=== PATIENT | male | born 1965 | race African-American/Black ===

== ENCOUNTER 2016-07-01 02:32 | Emergency (ER) | payer MEDICAID ==
[~2016-07-01] VITALS: Ht 182.9 cm; Wt 124.7 kg
[2016-07-01] MEDS ORDERED: Morphine Sulfate 4mg/ml Inj IVP ONE (02:45)
[2016-07-01 03:05] LABS: BASOPHILS % (AUTO) 0.6 % (0.0-2.0); EOSINOPHILS % (AUTO) 1.6 % (0.0-3.0); MEAN CORPUSCULAR HEMOGLOBIN 29.1 PG (27.0-31.0); MEAN CORPUSCULAR HGB CONC 34.4 G/DL (32.0-36.0); MEAN CORPUSCULAR VOLUME 85 FL (80-99); MEAN PLATELET VOLUME 8.5 FL (6.5-10.1); MONOCYTES % (AUTO) 7.1 % (1.0-10.0); NEUTROPHILS % (AUTO) 67.6 % (45.0-75.0); PLATELET COUNT 255 K/UL (150-450); RED BLOOD COUNT 4.39 M/UL (4.70-6.10); RED CELL DISTRIBUTION WIDTH 12.2 % (11.6-14.8); WHITE BLOOD COUNT 14.5 K/UL (4.8-10.8)
[2016-07-01 03:15] LABS: INR 0.9 (0.9-1.1); PROTHROMBIN TIME 9.6 SEC (9.30-11.50)
[2016-07-01 03:24] LABS: ALBUMIN/GLOBULIN RATIO 1.3 (1.0-2.7); CREATININE 1.3 mg/dL (0.7-1.2); GLOMERULAR FILTRATION RATE 58.7 mL/min (>60); POTASSIUM 3.1 mEQ/L (3.4-4.9); TOTAL PROTEIN 7.4 g/dL (6.6-8.7)
[2016-07-01] MEDS ORDERED: Ketorolac 30mg Inj IV ONE (04:00)
[2016-07-01 04:18] LABS: APPEARANCE,URINE CLEAR; KETONES,URINE NEGATIVE (NEGATIVE); LEUKOCYTE ESTERASE ,URINE NEGATIVE (NEGATIVE); NITRITE,URINE NEGATIVE (NEGATIVE); PH,URINE 8 (4.5-8.0); PROTEIN,URINE NEGATIVE (NEGATIVE); UROBILINOGEN,URINE NORMAL MG/DL (0.0-1.0)
[2016-07-01 04:21] VITALS: BP 158/77
[2016-07-01] MEDS ORDERED: cefTRIAXone 1 GM in NS 55 ML IVPB ONE (05:00)
[2016-07-01] MEDS ORDERED: NORCO 5-325 TA1 EAC1 ORAL (05:54)
[2016-07-01] MEDS ORDERED: KEFLEX500 MG ORAL (05:54)
[2016-07-01 06:23] VITALS: BP 158/77
--- NOTE | 2016-07-01 07:11 | Emergency Room Report ---
History of Present Illness General Chief Complaint: Abdominal Pain Source: Patient Present Illness HPI Patient is a 50-year-old male presented after increased right-sided flank pain. Patient had gradual onset of symptoms of the past few hours. Pain is waxing and waning in nature. Pain was sharp and radiated to his groin. Patient denied any fever. He had vomiting X one. Patient denies prior surgery. He had prior history of hypertension. He denies any increased pain with ambulation. Allergies: Coded Allergies: No Known Allergies (Unverified , 07/01/16) Patient History Past Medical History: see triage record Reviewed Nursing Documentation: PMH: Agreed, PSxH: Agreed Nursing Documentation-PMH Past Medical History: No Stated History Review of Systems All Other Systems: negative except mentioned in HPI Physical Exam Vital Signs Date Time Temp Pulse Resp B/P Pulse Ox O2 Delivery O2 Flow Rate FiO2 07/01/16 02:38 97.5 85 14 191/97 98 Room Air Sp02 EP Interpretation: reviewed, normal General Appearance: normal inspection, alert, GCS 15, mild distress Head: atraumatic ENT: normal ENT inspection, hearing grossly normal, normal voice Neck: normal inspection, full range of motion, supple, no bony tend Respiratory: normal inspection, lungs clear, normal breath sounds, no respiratory distress, no retraction, no wheezing Cardiovascular #1: regular rate, rhythm, no edema Gastrointestinal: normal inspection, normal bowel sounds, non tender, soft, no guarding, no hernia Genitourinary: no CVA tenderness Musculoskeletal: normal inspection, back normal, normal range of motion Neurologic: normal inspection, alert, oriented x3, responsive, 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 Differential diagnoses included ischemic bowel, appendicitis, perforated viscus, abdominal aortic aneurysm, inferior myocardial infarction, viral gastroenteritis Because of complexity of patient's case laboratory testing and imaging studies were ordered. laboratory testing showed elevated white blood count. The patient given IV antibiotics. CT abdomen pelvis read by radiology showed a 2 mm ureteral calculus near the UVJ. The patient was started on IV fluids as well as IV antibiotics. He was given IV pain medications as well as IV Toradol. The patient subsequently said he felt better and wanted to go home. Patient given prescriptions for antibiotics as well as pain medications. Patient is advised to return if he began having a fever persistent vomiting or increased pain. Labs Test 07/01/16 02:48 07/01/16 03:51 White Blood Count 14.5 K/UL (4.8-10.8) Red Blood Count 4.39 M/UL (4.70-6.10) Hemoglobin 12.8 G/DL (14.2-18.0) Hematocrit 37.2 % (42.0-52.0) Mean Corpuscular Volume 85 FL (80-99) Mean Corpuscular Hemoglobin 29.1 PG (27.0-31.0) Mean Corpuscular Hemoglobin Concent 34.4 G/DL (32.0-36.0) Red Cell Distribution Width 12.2 % (11.6-14.8) Platelet Count 255 K/UL (150-450) Mean Platelet Volume 8.5 FL (6.5-10.1) Neutrophils (%) (Auto) 67.6 % (45.0-75.0) Lymphocytes (%) (Auto) 23.0 % (20.0-45.0) Monocytes (%) (Auto) 7.1 % (1.0-10.0) Eosinophils (%) (Auto) 1.6 % (0.0-3.0) Basophils (%) (Auto) 0.6 % (0.0-2.0) Prothrombin Time 9.6 SEC (9.30-11.50) Prothromb Time International Ratio 0.9 (0.9-1.1) Activated Partial Thromboplast Time 25 SEC (23-33) Sodium Level 144 mEQ/L (135-145) Potassium Level 3.1 mEQ/L (3.4-4.9) Chloride Level 100 mEQ/L (98-107) Carbon Dioxide Level 28 mEQ/L (20-30) Anion Gap 16 (5-15) Blood Urea Nitrogen 18 mg/dL (7-23) Creatinine 1.3 mg/dL (0.7-1.2) Estimat Glomerular Filtration Rate 58.7 mL/min (>60) Glucose Level 196 mg/dL (74-106) Calcium Level 9.0 mg/dL (8.6-10.2) Total Bilirubin 0.5 mg/dL (0.0-1.2) Aspartate Amino Transf (AST/SGOT) 15 U/L (5-40) Alanine Aminotransferase (ALT/SGPT) 17 U/L (3-41) Alkaline Phosphatase 79 U/L (40-129) Total Protein 7.4 g/dL (6.6-8.7) Albumin 4.3 g/dL (3.5-5.2) Globulin 3.1 g/dL Albumin/Globulin Ratio 1.3 (1.0-2.7) Lipase 24 U/L (< 60) Urine Color Yellow Urine Appearance Clear Urine pH 8 (4.5-8.0) Urine Specific Tracy 1.010 (1.005-1.035) Urine Protein Negative (NEGATIVE) Urine Glucose (UA) 2+ (NEGATIVE) Urine Ketones Negative (NEGATIVE) Urine Occult Blood Negative (NEGATIVE) Urine Nitrite Negative (NEGATIVE) Urine Bilirubin Negative (NEGATIVE) Urine Urobilinogen Normal MG/DL (0.0-1.0) Urine Leukocyte Esterase Negative (NEGATIVE) Last Vital Signs Date Time Temp Pulse Resp B/P Pulse Ox O2 Delivery O2 Flow Rate FiO2 07/01/16 06:23 97.5 21 158/77 98 Room Air 07/01/16 02:38 85 Status: improved Disposition: HOME, SELF-CARE Condition: Stable Scripts Hydrocodone Bit/Acetaminophen 5-325* (NORCO 5-325 TABLET*) 1 Each Tablet 1 TAB ORAL Q4H Y for For Pain, #14 TAB Prov: Jordy Mancini 07/01/16 Cephalexin* (KEFLEX*) 500 Mg Capsule 500 MG ORAL Q6H, #28 CAP 0 Refills Prov: Jordy Mancini 07/01/16 Patient Instructions: Renal Colic Jordy Mancini July 01, 2016 07:11
--- NOTE | 2016-07-02 12:38 | Diagnostic Imaging Report ---
Indications: Abdominal pain Technique: Continuous helical CT imaging of the abdomen and pelvis was performed with automatic exposure control following administration of nonionic IV contrast only, on a Siemens sensation [address] scanner. Axial, coronal, sagittal images were reconstructed at 5 mm slice thickness. No oral contrast was administered per requesting physician's order, despite no contraindications listed. CTDI volume(s): 20 mGy Total DLP: 1072 mGy-cm Findings: Comparison: None Lack of oral contrast limits evaluation of gastrointestinal tract, nondilated throughout. Appendix unremarkable. Left-sided colon poorly distended, limiting evaluation. Single diverticulum descending colon. No obvious mural thickening, adjacent stranding, extraluminal gas or fluid collections identified. 2 mm stone within distal aspect of right ureter immediately proximal to the ureterovesical junction. Right ureter and renal collecting system above is mildly dilated. Mild stranding surrounds the right kidney. Liver parenchyma mildly, diffusely decreased attenuation. No focal abnormality. Gallbladder, pancreas, spleen, adrenal glands, left kidney, unopacified left ureter and urinary bladder, prostate, seminal vesicles, vascular structures, retroperitoneum, mesentery, remainder visualized abdominopelvic anatomy unremarkable. Lung bases and adjacent pleural surfaces clear. Disc marginal osteophytes lower thoracic spine.. IMPRESSION: 2 mm stone distal right ureter with mild hydronephrosis, perinephric stranding. Superimposed infection not excludable. No other evidence of acute abdominopelvic disease, with limitation as described. Subtle but potentially significant abnormalities the gastrointestinal tract may be missed. Repeat CT scan with full oral and IV contrast preparation recommended for more complete evaluation, as clinically indicated Colonic diverticulosis Hepatic steatosis Degenerative spondylosis This correlates with [facility] preliminary report.
== END 2016-07-01 06:27 | disposition home or self-care (01) ==
LOC: EMR 02:45 → EDBEDREQ 05:09 → CANBEDREQ 05:53 → EMR 06:27
DX: N20.9 Urinary calculus, unspecified (principal); N13.2 Hydronephrosis with renal and ureteral calculous obstruction; K57.30 Diverticulosis of large intestine without perforation or abscess without bleeding; K76.0 Fatty (change of) liver, not elsewhere classified
CPT/HCPCS: 36415; 74177; 80053; 81003; 83690; 85025; 85610; 85730; 86850; 86900; 86901; 96374; 96375; 99284; J0696; J1885; J2270; J7040; Q9967

== ENCOUNTER 2020-03-30 13:41 | Emergency (ER) | payer BC, MEDICAID ==
[~2020-03-30] VITALS: Ht 185.4 cm; Wt 127.5 kg
[~2020-03-30 13:41] MED LIST: KEFLEX500 MG ORAL; NORCO 5-325 TA1 EAC1 ORAL
--- NOTE | 2020-03-30 14:15 | NUR ---
pt report that his told him that he have a red yaa in his lower back, denies any pain at this time, no pain at this touch, no redness, no edema or bruces noted at this time.
[2020-03-30] MEDS ORDERED: Omnipaque-300 100ml vial INJ PRN (14:30)
--- NOTE | 2020-03-30 14:34 | Emergency Room Report ---
History of Present Illness General Chief Complaint: General Complaint Source: Patient Present Illness HPI Disclaimer: Please note that this report is being documented using [employer] technology. This can lead to erroneous entry secondary to incorrect interpretation by the dictating instrument. HPI: 54-year-old male presents for evaluation of bruising over the left flank. Patient noticed a dark discoloration over the left flank 3 days ago. No trauma noted. He notes some tightness in the back bilaterally and sometimes intermittent tingling in the left leg. 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 States he has problems with tight back muscles in the past. Denies saddle anesthesia, urinary tension, fecal incontinence, lower extremity weakness, changes in ambulation, fever, chills. Does not inject any medications. He currently denies any abdominal pain, nausea or vomiting. Eating at baseline. No recent illness. No prior history of coagulopathy according to patient or family history noted. He takes a baby aspirin daily PMH: Hypertension PSH: Denied Allergies: Penicillin (unknown reaction, told he was allergic as child) Social Hx: Occasional alcohol. Denies tobacco or drug use Allergies: Coded Allergies: PENICILLINS (Verified Allergy, Intermediate, 03/30/20) COVID-19 Screening Contact w/high risk pt: No Experienced COVID-19 symptoms?: No COVID-19 Testing performed [employer]: No Nursing Documentation-PMH Hx Hypertension: Yes Review of Systems All Other Systems: negative except mentioned in HPI Physical Exam Vital Signs Date Time Temp Pulse Resp B/P (MAP) Pulse Ox O2 Delivery O2 Flow Rate FiO2 03/30/20 14:09 98.4 82 18 153/91 (111) 98 Room Air General: Awake and alert, no acute distress HEENT: NC/AT. EOMI. Cardiovascular: RRR. S1 and S2 normal. No murmur appreciated Resp: Normal work of breathing. No cough, wheezing or crackles appreciated Abdomen: Abdomen is soft, nondistended. Obese abdomen. Nontender Skin: Intact. No abrasions, laceration or rash over the exposed skin MSK: Normal tone and bulk. Moving all extremities. No obvious deformity. Neuro: Awake and alert. Mentating appropriately. Back: No tenderness in the midline in the cervical, thoracic or lumbosacral spine. Moderate bilateral paraspinal tenderness. There is bruising approximately 3 x 4 cm over the left flank above the pelvis and below the last rib. No significant tenderness. No skin breakdown. No bruising on the right. Medical Decision Making Diagnostic Impression: Primary Impression: Fatty liver Additional Impressions: Hiatal hernia Sciatica Urinary tract calculus ER Course Is a 54-year-old male presenting for evaluation of unexplained bruising over the left flank and some tightness in the lower back. Concerned this may be a Parr Rausch sign patient had retroperitoneal bleed labs and CT were ordered. CT identifies fatty liver small hiatal hernia and nonspecific perinephric stranding but otherwise no signs of bleeding, major trauma or other major abnormalities. Labs are within normal limits. 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 Recommended physical therapy stretching exercise and will do a short course of Robaxin, Motrin and lidocaine patches. Patient requesting for refill of his amlodipine as not been able to see his PMD in some time. Recommended he follow-up quickly with his PMD but will refill his amlodipine today. Stable for outpatient follow-up. Return precautions discussed. He understands and agrees with this treatment plan. Laboratory Tests Test 03/30/20 15:00 White Blood Count 6.7 K/UL (4.8-10.8) Red Blood Count 4.85 M/UL (4.70-6.10) Hemoglobin 14.3 G/DL (14.2-18.0) Hematocrit 40.9 % (42.0-52.0) L Mean Corpuscular Volume 84 FL (80-99) Mean Corpuscular Hemoglobin 29.4 PG (27.0-31.0) Mean Corpuscular Hemoglobin Concent 35.0 G/DL (32.0-36.0) Red Cell Distribution Width 14.1 % (11.6-14.8) Platelet Count 222 K/UL (150-450) Mean Platelet Volume 7.8 FL (6.5-10.1) Neutrophils (%) (Auto) 51.5 % (45.0-75.0) Lymphocytes (%) (Auto) 35.5 % (20.0-45.0) Monocytes (%) (Auto) 8.4 % (1.0-10.0) Eosinophils (%) (Auto) 3.6 % (0.0-3.0) H Basophils (%) (Auto) 1.0 % (0.0-2.0) Prothrombin Time 10.3 SEC (9.30-11.50) Prothrombin Time INR 0.9 (0.9-1.1) Activated Partial Thromboplast Time 28 SEC (23-33) Sodium Level 142 MMOL/L (136-145) Potassium Level 3.5 MMOL/L (3.5-5.1) Chloride Level 104 MMOL/L (98-107) Carbon Dioxide Level 30 MMOL/L (21-32) Anion Gap 8 mmol/L (5-15) Blood Urea Nitrogen 15 mg/dL (7-18) Creatinine 1.0 MG/DL (0.55-1.30) Estimated Glomerular Filtration Rate > 60 mL/min (>60) Glucose Level 95 MG/DL (74-106) Calcium Level 9.1 MG/DL (8.5-10.1) Total Bilirubin 1.0 MG/DL (0.2-1.0) Aspartate Amino Transferase (AST) 21 U/L (15-37) Alanine Aminotransferase (ALT) 35 U/L (12-78) Alkaline Phosphatase 88 U/L (46-116) Total Protein 8.0 G/DL (6.4-8.2) Albumin 4.0 G/DL (3.4-5.0) Globulin 4.0 g/dL Albumin/Globulin Ratio 1.0 (1.0-2.7) Lipase 128 U/L (73-393) Last Vital Signs Date Time Temp Pulse Resp B/P (MAP) Pulse Ox O2 Delivery O2 Flow Rate FiO2 03/30/20 14:19 89 19 Room Air 03/30/20 14:09 98.4 153/91 (111) 98 Disposition: HOME, SELF-CARE Condition: Stable Scripts Amlodipine Besylate* (AMLODIPINE BESYLATE*) 10 Mg Tablet 10 MG ORAL DAILY for Hypertension for 30 Days, #30 TAB Prov: Ashu Jc MD 03/30/20 Ibuprofen* (MOTRIN*) 600 Mg Tablet 600 MG ORAL Q6H PRN for For Pain, #30 TAB 0 Refills Prov: Ashu Jc MD 03/30/20 Lidocaine Patch* (Lidoderm Patch*) 1 Each Adh..patch 1 PATCH TOPIC DAILY, #30 PATCH Patch(es) may remain in place for up to 12 hours in any 24-hour period. Prov: Ashu Jc MD 03/30/20 Methocarbamol* (ROBAXIN-750*) 750 Mg Tablet 750 MG PO QID, #28 TAB 0 Refills Prov: Ashu Jc MD 03/30/20 Ashu Jc MD Mar 30, 2020 14:34
[2020-03-30 15:09] VITALS: BP 146/83
[2020-03-30 15:21] LABS: ANION GAP 8 mmol/L (5-15); BLOOD UREA NITROGEN 15 mg/dL (7-18); CALCIUM 9.1 MG/DL (8.5-10.1); CARBON DIOXIDE 30 MMOL/L (21-32); CHLORIDE 104 MMOL/L (98-107); EOSINOPHILS % (AUTO) 3.6 % (0.0-3.0); HEMATOCRIT 40.9 % (42.0-52.0); HEMOGLOBIN 14.3 G/DL (14.2-18.0); INR 0.9 (0.9-1.1); LYMPHOCYTES % (AUTO) 35.5 % (20.0-45.0); MEAN CORPUSCULAR VOLUME 84 FL (80-99); MONOCYTES % (AUTO) 8.4 % (1.0-10.0); NEUTROPHILS % (AUTO) 51.5 % (45.0-75.0); PLATELET COUNT 222 K/UL (150-450); POTASSIUM 3.5 MMOL/L (3.5-5.1); RED BLOOD COUNT 4.85 M/UL (4.70-6.10); RED CELL DISTRIBUTION WIDTH 14.1 % (11.6-14.8); SODIUM 142 MMOL/L (136-145); WHITE BLOOD COUNT 6.7 K/UL (4.8-10.8)
[2020-03-30 15:32] LABS: ALANINE AMINOTRANSFERASE 35 U/L (12-78); ALKALINE PHOSPHATASE 88 U/L (46-116); ASPARTATE AMINO TRANSFERASE 21 U/L (15-37)
--- NOTE | 2020-03-30 16:24 | Diagnostic Imaging Report ---
EXAM: CT Abdomen and Pelvis With Intravenous Contrast CLINICAL HISTORY: FLANK TECHNIQUE: Axial computed tomography images of the abdomen and pelvis with intravenous contrast. CTDI is 16.10 mGy and DLP is 945.20 mGy-cm. One or more of the following dose reduction techniques were used: automated exposure control, adjustment of the mA and/or kV according to patient size, use of iterative reconstruction technique. COMPARISON: 07/01/2016. FINDINGS: Lung bases: Unremarkable. No mass. No consolidation. Pleural space: No pleural effusions. Heart: Heart is normal in size. Mediastinum: Small hiatal hernia possible distal esophagitis. ABDOMEN: Liver: Fatty liver. Gallbladder and bile ducts: See below. Pancreas: See below. Spleen: Spleen enhance uniformly. Adrenals: The adrenal glands, the head, body, tail of the pancreas and the gallbladder is unremarkable. Kidneys and ureters: A 0.2 cm nonobstructing calculus upper to mid pole region of the left kidney. No hydronephrosis. Minimal nonspecific stranding about the perinephric spaces. Stomach and bowel: Mild to moderate quantity of stool throughout the colon. No bowel obstruction. No mucosal thickening. PELVIS: Appendix: Appendix is seen on coronal image 26 and is unremarkable. Bladder: Bladder is underdistended. Reproductive: Unremarkable as visualized. ABDOMEN and PELVIS: Intraperitoneal space: Unremarkable. No free air. No significant fluid collection. Bones/joints: No spondylolysis or spondylolisthesis. No acute fracture. No dislocation. Soft tissues: Ischiorectal fat is clean. Vasculature: Minimal atherosclerotic disease of the abdominal aorta without change in caliber. Flow is demonstrated within the celiac, SMA, the renal arteries, and TONY. No abdominal aortic aneurysm. Lymph nodes: No retroperitoneal adenopathy. No pelvic or inguinal lymphadenopathy. Other findings: Elevation of the right hemidiaphragm. IMPRESSION: 1. Fatty liver. 2. Small hiatal hernia. 3. The gallbladder is unremarkable. 4. Minimal nonspecific stranding about the perinephric spaces. 5. 0.2 cm nonobstructing left renal calculus. 6. The appendix is unremarkable. 7. No evidence of bowel obstruction.
[2020-03-30] MEDS ORDERED: ROBAXIN-750750 MG PO (16:35)
[2020-03-30] MEDS ORDERED: IBUPROFEN600 M1 ORAL (16:35)
[2020-03-30] MEDS ORDERED: LIDODERM700 M1 TOPIC (16:35)
--- NOTE | 2020-03-30 16:38 | NUR ---
ED Nurse Note:MYA curiel'dylan urine
[2020-03-30] MEDS ORDERED: AMLODIPINE BESY10 MG ORAL (16:40)
[2020-03-30 16:42] VITALS: BP 138/86
== END 2020-03-30 16:44 | disposition home or self-care (01) ==
LOC: EMR 14:30
DX: K76.0 Fatty (change of) liver, not elsewhere classified (principal); K44.9 Diaphragmatic hernia without obstruction or gangrene; M54.30 Sciatica, unspecified side; N20.0 Calculus of kidney; Z88.0 Allergy status to penicillin; I10 Essential (primary) hypertension
CPT/HCPCS: 36415; 74177; 80053; 83690; 85025; 85610; 85730; 99284; Q9965